=== PATIENT | female | born 1995 | race Caucasian/White ===

== ENCOUNTER 2022-01-14 01:37 | Emergency (ER) | payer MEDICAID, SELFPAY ==
[2022-01-14 01:41] VITALS: BP 133/93; PULSE 85; RESP 16; TEMP 36.7; O2SAT 97; BMI 32.4
--- NOTE | 2022-01-14 01:48 | EKG12_ITS ---
Test Reason : ASTHMA Blood Pressure : / mmHG Vent. Rate : 078 BPM Atrial Rate : 078 BPM P-R Int : 162 ms QRS Dur : 074 ms QT Int : 394 ms P-R-T Axes : 046 026 028 degrees QTc Int : 449 ms Normal sinus rhythm Septal infarct , age undetermined Abnormal ECG Confirmed by GURDEEP ALONSO, JOSELINE ([id number]), editor at large LALITA ALVARADO ([id number]) on 01/16/2022 11:45:03 AM Referred By: BB Confirmed By:LUCAS MACKENZIE MD
--- NOTE | 2022-01-14 01:49 | EDS_ITS ---
HPI History of Present Illness Chief Complaint: Asthma Informant: patient Onset/Context/Timing Onset: Days (1-2) Context: gradual and onset Timing: Continuous Quality: Positive for Wheezing and - (Chest tightness) Current Severity: Moderate Maximum Severity: Moderate Worsened by: - (Breathing and coughing make her chest pain worse) Associated Symptoms cough Chest Pain: Positive for Tightness (Substernal/diffuse, nonlateralizing without other radiation) Narrative Narrative: Patient comes in telling nurses that she just needs an albuterol inhaler because she does not have 1 and is having an asthma attack, tells me it has been gradual onset of chest tightness and wheezing with no obvious trigger, she has a minor nonproductive cough, and her main complaint is the chest pain. This is worse than she has had with typical asthma flareups in the past. She does not feel like she has a cold. She denies any fevers or chills or obvious exposures to COVID-positive patients in the recent past. No leg pain or swelling. No history of DVT or PE. No GI symptoms. [facility] Medical History Asthma Home Medications albuterol sulfate 90 mcg/actuation aerosol inhaler (Ventolin HFA) 2 puff inhalation Q4H PRN PRN Wheezing ##1 01/14/22 [Rx Last Taken Unknown] prednisone 20 mg tablet 40 mg PO DAILY #10 TABLETS 01/14/22 [Rx Last Taken Unknown] Allergy/AdvReac Type Severity Reaction Status Date / Time No Known Allergies Allergy Verified 01/14/22 01:39 Social History Smoking Status: Never smoker [facility] ED Constitutional Constitutional ED: Denies chills or fever(s) Eyes Eyes: Denies change in vision or diplopia ENT ENT ED: Denies rhinorrhea or sore throat Cardiovascular Cardiovascular: Reports chest pain; Denies leg edema or palpitations Respiratory/Chest Respiratory/Chest: Reports cough and dyspnea; Denies sputum Gastrointestinal Gastrointestinal: Denies abdominal pain, diarrhea, nausea or vomiting Genitourinary Genitourinary ED: Denies dysuria or hematuria Musculoskeletal Musculoskeletal: Denies back pain or neck pain Integumentary Denies abscess or rash Neurologic Neurologic: Denies headache(s), paresthesias or weakness Psychiatric Psychiatric: Denies anxiety or suicidal thoughts EXAM Physical Exam Const Vital Signs: 01/14/22 01:41 01/14/22 01:41 01/14/22 01:41 Temperature 98.1 F Temperature Source Oral Pulse Rate 85 Respiratory Rate 16 16 Respiratory Effort Normal Non-Labored Respiratory Depth Normal Respiratory Pattern Normal Blood Pressure 133/93 H Blood Pressure Mean 106 Pulse Ox 97 Oxygen Delivery Method Room Air Room Air 01/14/22 01:57 Temperature Temperature Source Pulse Rate 78 Respiratory Rate 24 H Respiratory Effort Respiratory Depth Respiratory Pattern Normal Blood Pressure Blood Pressure Mean Pulse Ox Oxygen Delivery Method Positive well nourished and well developed General Appearance ED: well developed and NAD HEENT Reports moist mucous membranes normocephalic and atraumatic Eyes PERRL and EOMs intact bilaterally Neck full ROM and supple Resp normal respiratory effort and clear to auscultation bilaterally Effort and Inspection: able to speak in complete sentences Cardio regular rate, regular rhythm and no murmurs Rate: Negative for tachycardic GI non-tender and non-distended Auscultation: normoactive bowel sounds Palpation: soft Back/Spine no CVA tenderness General Back: other FROM Extremity normal to inspection and no calf tenderness General Extremety ED: Negative for edema, pulses abnormal or tenderness General Extremity: Negative for edema or pulses abnormal Neuro oriented x3, CN's II-XII intact bilaterally and no sensory deficits noted Sensorium / Orientation: awake and alert Motor Exam: strength 5/5 throughout Psych mental status grossly normal Skin no rashes or lesions noted and no wounds MDM MDM MDM Narrative Medical decision making narrative: Patient was given a duo nebulizer treatment as well as an albuterol. On reevaluation she feels back to normal and all of her symptoms are resolved. She is asking for an albuterol MDI which was prescribed, she does not know what the trigger was for this, nor does she necessarily have a URI, so I gave her a prescription for a 5-day burst of prednisone to use as a [id number] prescription without starting her on it now. I discussed this with her, she and her significant other seemed understand how to use this although she continued to give me one-word answers on my reevaluation. Radiography Chest X-Ray - ED: 2 View, Read by ED Physician, Normal, Heart, Lungs, Mediastinum, Bony Structures and No Acute Disease Rhythm Strip Rhythm Strip: Sinus Rhythm Rate: 75 Ectopy: None EKG Initial EKG: Attestation: I personally reviewed and interpreted this EKG as follows: Interpretation: Sinus Rhythm and No Acute Injury Pattern Comments: Normal EKG Discharge Plan Triage Chief Complaint: Asthma ED Provider: Devan Arredondo Dx/Rx/DC Orders Clinical Impression: Acute asthma exacerbation, Chest tightness Instructions: Asthma Prescriptions: New prednisone 20 mg tablet 40 mg PO DAILY Qty: 10 0RF albuterol sulfate [Ventolin HFA] 90 mcg/actuation HFA aerosol inhaler 2 puff inhalation Q4H PRN PRN (Reason: Wheezing) Qty: 1 0RF Primary Care Provider: Care Physician,No Primary Referrals: Brandy Rhodes [NON-STAFF] - As Needed Care Physician,No Primary [Primary Care Provider] - Activity Restrictions/Additional Instructions: If you continue to need the rescue inhaler 3 or 4 times per day for the next day or 2, fill and take the prednisone as prescribed until completely gone. Disposition Disposition: Home, Self Care
--- NOTE | 2022-01-14 01:49 | RAD_ITS ---
INDICATION: cough, cp, sob, asthma EXAMINATION: Frontal and lateral views of the chest. COMPARISON: None. FINDINGS: Frontal and lateral views of the chest were obtained. The cardiac silhouette is not enlarged. No confluent airspace disease. No pleural effusion or pneumothorax. RAD/Chest PA and Lateral IMPRESSION: No acute pulmonary disease. Electronically Signed: Christiano Amin MD at 2:42 EDT ,
[2022-01-14] MEDS: Ipratropium/Albuterol Sulfate 3 ML AMPUL.NEB INHALATION (01:55)
[2022-01-14] MEDS: Albuterol 2.5 MG/3 ML VIAL.NEB. INHALATION (01:55)
[2022-01-14 01:57] VITALS: PULSE 78; RESP 24
[2022-01-14 02:52] VITALS: BP 132/70; PULSE 74; RESP 15; O2SAT 98
== END 2022-01-14 02:52 | disposition home or self-care (01) ==
PROVIDERS: Emergency Provider Emergency Medicine; Visit Provider Emergency Medicine
DX: J45.901 Unspecified asthma with (acute) exacerbation (principal); R07.89 Other chest pain
CPT/HCPCS: 94640; 71046; 93005; 99282

== ENCOUNTER 2022-05-04 12:05 | Emergency (ER) | payer MEDICAID, SELFPAY ==
[2022-05-04 12:06] VITALS: BP 133/84; PULSE 84; RESP 18; TEMP 36.2; O2SAT 97; BMI 33.7
--- NOTE | 2022-05-04 12:32 | EDS_ITS ---
HPI <CHETAN Ruggiero - Last Filed: 05/04/22 21:54> History of Present Illness Chief Complaint: Nausea/Vomiting Narrative Narrative: Patient presents with nausea, vomiting, and lower abdominal pain that started earlier this morning. Patient denies diarrhea, constipation, blood in the stool, dysuria, abnormal vaginal discharge, and history of prior abdominal surgeries. Patient states she has been able to tolerate food and fluids today. She is unsure if she could be . Patient's menstrual cycle ended yesterday and she states it lasted a duration of 14 days with some mild spotting towards the end which is unusual for her. PFSH <CHETAN Ruggiero - Last Filed: 05/04/22 21:54> [facility] Medical History Asthma Home Medications albuterol sulfate 90 mcg/actuation aerosol inhaler (Ventolin HFA) 2 puff inhalation Q4H PRN PRN Wheezing ##1 01/14/22 [Rx Last Taken Unknown] prednisone 20 mg tablet 40 mg PO DAILY #10 TABLETS 01/14/22 [Rx Last Taken Unknown] albuterol sulfate 90 mcg/actuation aerosol inhaler (Ventolin HFA) 1 - 2 puff inhalation Q4H PRN PRN Wheezing 1 month #1 vial 05/04/22 [Rx Last Taken Unknown] albuterol sulfate 90 mcg/actuation aerosol inhaler (Ventolin HFA) 2 puff inhalation Q4H PRN PRN Wheezing ##1 05/04/22 [Rx Last Taken Unknown] ondansetron 4 mg disintegrating tablet 4 mg PO Q8H PRN nausea and vomiting #10 tabs 05/04/22 [Rx Last Taken Unknown] ondansetron HCl 4 mg tablet 4 mg PO Q6H PRN nausea and vomiting #15 tabs 05/04/22 [Rx Last Taken Unknown] sulfamethoxazole 400 mg-trimethoprim 80 mg tablet (Bactrim) 1 tab PO BID cystitis 3 days #6 tabs 05/04/22 [Rx Last Taken Unknown] sulfamethoxazole 800 mg-trimethoprim 160 mg tablet 1 tab PO BID #6 TABLETS 05/04/22 [Rx Last Taken Unknown] Allergy/AdvReac Type Severity Reaction Status Date / Time No Known Allergies Allergy Verified 05/04/22 12:06 Social History Smoking Status: Never smoker ROS <CHETAN Ruggiero - Last Filed: 05/04/22 21:54> ROS ED Constitutional Constitutional ED: Denies chills, fever(s) or sweats ENT ENT ED: Denies rhinorrhea or sore throat Cardiovascular Cardiovascular: Denies chest pain Respiratory/Chest Respiratory/Chest: Denies cough or dyspnea Gastrointestinal Gastrointestinal: Reports abdominal pain, nausea and vomiting; Denies constipation, diarrhea, hematemesis or melena Genitourinary Genitourinary ED: Denies dysuria, hematuria or urinary frequency Musculoskeletal Musculoskeletal: Denies back pain or myalgias Integumentary Denies abscess, Abrasions or rash Neurologic Neurologic: Denies headache(s) or weakness Psychiatric Psychiatric: Denies anxiety EXAM <CHETAN Ruggiero - Last Filed: 05/04/22 21:54> Physical Exam Const Vital Signs: 05/04/22 12:06 Temperature 97.1 F L Temperature Source Temporal Pulse Rate 84 Respiratory Rate 18 Blood Pressure 133/84 H Blood Pressure Mean 100 Pulse Ox 97 Oxygen Delivery Method Room Air Positive obese Nutritional Appearance: obese HEENT Reports moist mucous membranes Eyes PERRL and EOMs intact bilaterally Neck supple Resp normal respiratory effort and clear to auscultation bilaterally Cardio regular rate, regular rhythm and no murmurs GI non-distended and no masses; Negative for hepatosplenomegaly GI Narrative: Patient is tender to palpation along the lower abdomen. Palpation: Negative for splenomegaly Back/Spine no CVA tenderness Extremity normal to inspection Neuro oriented x3, CN's II-XII intact bilaterally and no sensory deficits noted Sensorium / Orientation: alert Motor Exam: strength 5/5 throughout Psych mental status grossly normal Skin no rashes or lesions noted, no wounds and skin turgor normal <Gwyn Santo MD - Last Filed: 05/04/22 21:57> Physical Exam Const Vital Signs: 05/04/22 12:06 Temperature 97.1 F L Temperature Source Temporal Pulse Rate 84 Respiratory Rate 18 Blood Pressure 133/84 H Blood Pressure Mean 100 Pulse Ox 97 Oxygen Delivery Method Room Air MDM <CHETAN Ruggiero - Last Filed: 05/04/22 21:54> MDM MDM Narrative Medical decision making narrative: Patient has been given IV fluids and Zofran due to the N/V. After administration of this, patient felt much better and wanted to be discharged home. She is stable and I feel comfortable with her discharging home. UA showed acute cystitis. test was negative. She has been prescribed antibiotics and Zofran. She asked me if I could refill her albuterol inhaler due to currently being out and not being able to see her PCP until August. I have also referred her to [facility]URSE [facility] Dr. Strickland for the abnormal vaginal bleeding that occurred. Discharge instructions reviewed with patient and she is agreeable with plan. Lab Data Attestation: I reviewed the patient's lab results. Lab results narrative: Acute cystitis. Elevated white blood cell count. Labs: Laboratory Results - last 24 hr 05/04/22 05/04/22 05/04/22 12:50 12:50 12:50 WBC 13.8 H RBC 4.51 Hgb 12.8 Hct 39.5 MCV 87.6 MCH 28.4 MCHC 32.4 RDW Std Deviation 42.1 RDW Coeff of Karly 13.2 Plt Count 325 MPV 10.3 Immature Gran % (Auto) 0.400 Neut % (Auto) 77.5 H Lymph % (Auto) 18.5 L Chaves % (Auto) 3.3 Eos % (Auto) 0.1 Baso % (Auto) 0.2 Absolute Neuts (auto) 10.7 H Absolute Lymphs (auto) 2.55 Nucleated RBC % 0 Sodium 141 Potassium 3.7 Chloride 108 H Carbon Dioxide 27.0 Anion Gap 6 BUN 14 Creatinine 0.84 Estim Creat Clear Calc 93.34 Est GFR (MDRD) Af Amer 103 Est GFR (MDRD) Non-Af 85 BUN/Creatinine Ratio 16.6 Glucose 120 H Calcium 9.5 Total Bilirubin 0.40 AST 14 L ALT 21 Alkaline Phosphatase 125 H Total Protein 8.0 Albumin 3.8 Globulin 4.2 Albumin/Globulin Ratio 0.9 Lipase 101 Serum , Qual NEGATIVE Urine Color Urine Clarity Urine pH Ur Specific [place] Urine Protein Urine Glucose (UA) Urine Ketones Urine Occult Blood Urine Nitrite Urine Bilirubin Urine Urobilinogen Ur Leukocyte Esterase Urine RBC Urine WBC Ur Squamous Epith Cells Urine Bacteria Urine Mucus 05/04/22 12:50 WBC RBC Hgb Hct MCV MCH MCHC RDW Std Deviation RDW Coeff of Karly Plt Count MPV Immature Gran % (Auto) Neut % (Auto) Lymph % (Auto) Chaves % (Auto) Eos % (Auto) Baso % (Auto) Absolute Neuts (auto) Absolute Lymphs (auto) Nucleated RBC % Sodium Potassium Chloride Carbon Dioxide Anion Gap BUN Creatinine Estim Creat Clear Calc Est GFR (MDRD) Af Amer Est GFR (MDRD) Non-Af BUN/Creatinine Ratio Glucose Calcium Total Bilirubin AST ALT Alkaline Phosphatase Total Protein Albumin Globulin Albumin/Globulin Ratio Lipase Serum , Qual Urine Color Yellow Urine Clarity Cloudy Urine pH 5.0 Ur Specific [place] 1.020 Urine Protein 30 H Urine Glucose (UA) Normal Urine Ketones 5 H Urine Occult Blood 10 H Urine Nitrite Negative Urine Bilirubin Negative Urine Urobilinogen Normal Ur Leukocyte Esterase 500 H Urine RBC 0 SEEN Urine WBC 25-50 SEEN Ur Squamous Epith Cells 0-5 SEEN Urine Bacteria 1+ Urine Mucus 0 SEEN CBC shows elevated white blood cell count and neutrophil count. CMP shows elevated alkaline phosphate. <Gwyn Santo MD - Last Filed: 05/04/22 21:57> [facility] MDM Narrative Medical decision making narrative: Patient has been given IV fluids and Zofran due to the N/V. After administration of this, patient felt much better and wanted to be discharged home. She is stable and I feel comfortable with her discharging home. UA showed acute cystitis. test was negative. She has been prescribed antibiotics and Zofran. She asked me if I could refill her albuterol inhaler due to currently being out and not being able to see her PCP until August. I have also referred her to [facility]URSE [employer] Dr. Strickland for the abnormal vaginal bleeding that occurred. Discharge instructions reviewed with patient and she is agreeable with plan. I have personally performed a face to face assessment of the patient and have reviewed the JAX Note. I performed a substantive portion of the visit including all aspects of the following. My guillen findings include: History is nausea and vomiting. Abdominal pain. Exam is afebrile. Vital signs noted. Nontoxic-appearing. Abdomen soft and nontender with normoactive bowel sounds. Medical Decision Making check labs. Check UA. IV fluids. Discharge. Other additions or changes: [None] Lab Data Labs: Laboratory Results - last 24 hr 05/04/22 05/04/22 05/04/22 12:50 12:50 12:50 WBC 13.8 H RBC 4.51 Hgb 12.8 Hct 39.5 MCV 87.6 MCH 28.4 MCHC 32.4 RDW Std Deviation 42.1 RDW Coeff of Karly 13.2 Plt Count 325 MPV 10.3 Immature Gran % (Auto) 0.400 Neut % (Auto) 77.5 H Lymph % (Auto) 18.5 L [place]aves % (Auto) 3.3 Eos % (Auto) 0.1 Baso % (Auto) 0.2 Absolute Neuts (auto) 10.7 H Absolute Lymphs (auto) 2.55 Nucleated RBC % 0 Sodium 141 Potassium 3.7 Chloride 108 H Carbon Dioxide 27.0 Anion Gap 6 BUN 14 Creatinine 0.84 Estim Creat Clear Calc 93.34 Est GFR (MDRD) Af Amer 103 Est GFR (MDRD) Non-Af 85 BUN/Creatinine Ratio 16.6 Glucose 120 H Calcium 9.5 Total Bilirubin 0.40 AST 14 L ALT 21 Alkaline Phosphatase 125 H Total Protein 8.0 Albumin 3.8 Globulin 4.2 Albumin/Globulin Ratio 0.9 Lipase 101 Serum , Qual NEGATIVE Urine Color Urine Clarity Urine pH Ur Specific [place] Urine Protein Urine Glucose (UA) Urine Ketones Urine Occult Blood Urine Nitrite Urine Bilirubin Urine Urobilinogen Ur Leukocyte Esterase Urine RBC Urine WBC Ur Squamous Epith Cells Urine Bacteria Urine Mucus 05/04/22 12:50 WBC RBC Hgb Hct MCV MCH MCHC RDW Std Deviation RDW Coeff of Karly Plt Count MPV Immature Gran % (Auto) Neut % (Auto) Lymph % (Auto) Chaves % (Auto) Eos % (Auto) Baso % (Auto) Absolute Neuts (auto) Absolute Lymphs (auto) Nucleated RBC % Sodium Potassium Chloride Carbon Dioxide Anion Gap BUN Creatinine Estim Creat Clear Calc Est GFR (MDRD) Af Amer Est GFR (MDRD) Non-Af BUN/Creatinine Ratio Glucose Calcium Total Bilirubin AST ALT Alkaline Phosphatase Total Protein Albumin Globulin Albumin/Globulin Ratio Lipase Serum , Qual Urine Color Yellow Urine Clarity Cloudy Urine pH 5.0 Ur Specific [place] 1.020 Urine Protein 30 H Urine Glucose (UA) Normal Urine Ketones 5 H Urine Occult Blood 10 H Urine Nitrite Negative Urine Bilirubin Negative Urine Urobilinogen Normal Ur Leukocyte Esterase 500 H Urine RBC 0 SEEN Urine WBC 25-50 SEEN Ur Squamous Epith Cells 0-5 SEEN Urine Bacteria 1+ Urine Mucus 0 SEEN Discharge Plan Triage Chief Complaint: Nausea/Vomiting ED Midlevel Provider: Bianca Hernandez ED Provider: Gwyn Santo Dx/Rx/DC Orders Clinical Impression: Nausea & vomiting, Cystitis, Abdominal pain, Medication refill, Abnormal vaginal bleeding Instructions: ED Cystitis Female Adult Prescriptions: New sulfamethoxazole-trimethoprim [Bactrim] 400-80 mg tablet 1 tab PO BID 3 Days Qty: 6 0RF ondansetron 4 mg tablet,disintegrating 4 mg PO Q8H PRN (Reason: nausea and vomiting) Qty: 10 0RF albuterol sulfate [Ventolin HFA] 90 mcg/actuation HFA aerosol inhaler 1 - 2 puff inhalation Q4H PRN PRN (Reason: Wheezing) 30 Days Qty: 1 0RF ondansetron HCl 4 mg tablet 4 mg PO Q6H PRN (Reason: nausea and vomiting) Qty: 15 0RF sulfamethoxazole-trimethoprim [sulfamethoxazole-trimethoprim] 800-160 mg tablet 1 tab PO BID Qty: 6 0RF albuterol sulfate [Ventolin HFA] 90 mcg/actuation HFA aerosol inhaler 2 puff inhalation Q4H PRN PRN (Reason: Wheezing) Qty: 1 0RF Rx Instructions: use spacer No Action prednisone 20 mg tablet 40 mg PO DAILY Qty: 10 0RF albuterol sulfate [Ventolin HFA] 90 mcg/actuation HFA aerosol inhaler 2 puff inhalation Q4H PRN PRN (Reason: Wheezing) Qty: 1 0RF Primary Care Provider: Care Physician,No Primary Referrals: Rylee Nobles MD [Med Staff - Transportation Design Engineer] - 1 Week if not improving Mala Strickland DO [Med Staff - Active Staff] - 1 Week (14 days of abnormal vaginal bleeding during menstrual cycle.) Care Physician,No Primary [Primary Care Provider] - Activity Restrictions/Additional Instructions: Follow-up with ultrasonographer for the abnormal vaginal bleeding. Seek medical attention if new or worsening symptoms. Stay well hydrated. Disposition Disposition: Home, Self Care Discharge Date/Time: 05/04/22 14:01
[2022-05-04] MEDS: Ondansetron 4 MG/2 ML Vial IV (12:49)
[2022-05-04] MEDS: 0.9% Normal Saline 1,000 ML 999 ML IV (12:49)
[2022-05-04 12:56] LABS: Mucous, Urine 0 SEEN /hpf (<or=2+); Red Blood Cells-Urine 0 SEEN /hpf (0-5)
[2022-05-04 13:01] LABS: Absolute Lymphocyte Count 2.55 X10^3/uL (0.83-4.51); Absolute Neutrophil Count 10.7 X10^3/uL (2.0-7.7); Basophil# 0.03 X10^3/uL; Basophil% 0.2 % (0-1); Eosinophil# 0.01 X10^3/uL; Eosinophils% 0.1 % (0-5); Hematocrit 39.5 % (37-47); Hemoglobin 12.8 g/dL (12.0-15.0); Lymphocyte # 2.55 X10^3/ul (0.83-4.51); Lymphocyte % 18.5 % (19-41); Mean Corp Hgb Conc 32.4 g/dL (32-36); Mean Corpuscular Hgb 28.4 pg (27.0-32.0); Mean Corpuscular Volume 87.6 fL (81-99); Mean Platelet Vol. 10.3 fl (6.2-12.0); Monocyte# 0.46 X10^3/uL; Monocyte% 3.3 % (0-10); NRBC Flagged by Analyzer 0 % (0-5); Neutrophil # 10.66 X10^3/uL (2.7-7.7); Neutrophil % 77.5 % (47-70); Platelet Count 325 K/mm3 (150-450); RBC Distribution Width CV 13.2 % (11.6-14.6); RBC Distribution Width SD 42.1 fl (35.1-43.9); Red Blood Count 4.51 M/mm3 (4.2-5.4); White Blood Count 13.8 K/mm3 (4.4-11.0)
[2022-05-04 13:02] LABS: Color, Urine Yellow (Yellow); Glucose, Dipstick Normal (Normal); Ketone-Dipstick 5 mg/dl (Negative); Leukocyte Esterase-Dipstick 500 /ul (Negative); Nitrite-Dipstick Negative (Negative); Occult Blood-Urine 10 /ul (Negative); Protein-Dipstick 30 mg/dl (Negative); Urine Bilirubin Dipstick Negative (Negative); Urine Clarity Cloudy (Clear); Urine Urobilinogen Normal (Normal)
[2022-05-04 13:21] LABS: Bacteria 1+ /hpf (None Seen); Squamous Epithelial Cells - UA 0-5 SEEN /hpf (5-10); White Blood Cells 25-50 SEEN /hpf (0-5)
[2022-05-04 13:26] LABS: Internal QC Validated? YES +Cl - CLEAR BKGD; Pregnancy, Serum, hCG Quali. NEGATIVE Negative
[2022-05-04 13:28] LABS: ALB/GLOB Ratio 0.9 RATIO (0.9-2.4); AST(SGOT) 14 U/L (15-37); Alanine Aminotransfer ALT/SGPT 21 U/L (13-56); Albumin, Serum 3.8 g/dL (3.2-5.0); Alkaline Phosphatase 125 U/L (45-117); Anion Gap 6 (5-15); BUN 14 mg/dL (7-18); BUN/Creat Ratio 16.6 RATIO (10-20); Calcium,Total 9.5 mg/dL (8.5-10.1); Chloride 108 mmol/L (98-107); Creatinine, Serum 0.84 mg/dL (0.55-1.02); EST Glomerular Filtration Rate 85 mL/min (>60); Est Glom Filt Rate - Afr Amer 103 mL/min (>60); Estimated Creatinine Clearance 93.34 ml/min; Globulin 4.2 g/dL (2.2-4.2); Glucose 120 mg/dL (74-106); Lipase 101 U/L (73-393); Potassium 3.7 mmol/L (3.5-5.1); Sodium Level 141 mmol/L (136-145)
== END 2022-05-04 14:01 | disposition home or self-care (01) ==
PROVIDERS: Physician Assistant; Emergency Provider Emergency Medicine; Visit Provider Emergency Medicine
DX: R11.2 Nausea with vomiting, unspecified (principal); N30.90 Cystitis, unspecified without hematuria; Z76.0 Encounter for issue of repeat prescription; N93.9 Abnormal uterine and vaginal bleeding, unspecified; J45.909 Unspecified asthma, uncomplicated
CPT/HCPCS: 80053; 81001; 83690; 84703; 85025; 96361; 96374; 99283; J7030; J2405

== ENCOUNTER 2022-10-08 16:52 | Emergency (ER) | payer MEDICAID, SELFPAY ==
[2022-10-08 16:53] VITALS: BP 129/92; PULSE 94; RESP 14; TEMP 36.1; O2SAT 96; BMI 25.8
--- NOTE | 2022-10-08 17:11 | CT_ITS ---
STUDY: CT ABDOMEN AND PELVIS WITHOUT CONTRAST REASON FOR EXAM: Female, 27 years old. pain, blunt trauma RADIATION DOSAGE (If Supplied By Facility): CTDIvol = ( 15.69 ) mGy, DLP = ( 838.75 ) mGycm TECHNIQUE: Transaxial images were obtained from the dome of the diaphragm to the symphysis pubis without oral contrast, and without intravenous contrast. Sagittal and coronal images were reconstructed. Individualized dose optimization techniques were used for this CT. COMPARISON: None. FINDINGS: The visualized lung bases are unremarkable. The visualized portions of the heart are within normal limits. Normal liver. Normal gallbladder and extrahepatic biliary system. Normal spleen. Normal pancreas. Normal bilateral adrenal glands. Normal right kidney. Normal left kidney. Normal visualized stomach. Normal small intestine. Normal colon. The appendix is visualized and appears normal. Normal abdominal aorta. Normal inferior vena cava. Normal retroperitoneum. Normal urinary bladder. Normal abdominal wall. Normal osseous structures. CT/Abdomen/Pelvis without Cont IMPRESSION: Normal unenhanced CT of the abdomen and pelvis. Electronically Signed: Jose R Yang MD at 18:43 EDT ,
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
[2022-10-08 17:53] LABS: Internal QC Validated? YES +Cl - CLEAR BKGD; Pregnancy, Urine Negative Negative
== END 2022-10-08 18:54 | disposition home or self-care (01) ==
PROVIDERS: Emergency Provider Emergency Medicine; PCP Internal Medicine; Visit Provider Emergency Medicine
DX: S80.02XA Contusion of left knee, initial encounter (principal); R10.819 Abdominal tenderness, unspecified site; V43.52XA Car driver injured in collision with other type car in traffic accident, initial encounter; S50.01XA Contusion of right elbow, initial encounter; J45.909 Unspecified asthma, uncomplicated
CPT/HCPCS: 73090; 73564; 74176; 81025; 99282

== ENCOUNTER 2022-10-10 07:10 | Emergency (ER) | payer MEDICAID, SELFPAY ==
[2022-10-10 07:11] VITALS: BP 126/87; PULSE 58; RESP 18; TEMP 36.8; O2SAT 97; BMI 34.7
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
[2022-10-10] MEDS: Morphine 4 MG/ML Syringe IV (07:40)
[2022-10-10] MEDS: Ondansetron 4 MG/2 ML Vial IV (07:40)
[2022-10-10 07:49] LABS: Absolute Lymphocyte Count 3.99 X10^3/uL (0.83-4.51); Absolute Neutrophil Count 7.2 X10^3/uL (2.0-7.7); Basophil# 0.05 X10^3/uL; Basophil% 0.4 % (0-1); Eosinophil# 0.22 X10^3/uL; Eosinophils% 1.8 % (0-5); Hematocrit 39.8 % (37-47); Hemoglobin 12.4 g/dL (12.0-15.0); Lymphocyte # 3.99 X10^3/ul (0.83-4.51); Lymphocyte % 32.9 % (19-41); Mean Corp Hgb Conc 31.2 g/dL (32-36); Mean Corpuscular Volume 86.7 fL (81-99); Mean Platelet Vol. 9.8 fl (6.2-12.0); Monocyte# 0.62 X10^3/uL; Monocyte% 5.1 % (0-10); NRBC Flagged by Analyzer 0 % (0-5); Neutrophil % 59.4 % (47-70); Platelet Count 334 K/mm3 (150-450); RBC Distribution Width CV 14.3 % (11.6-14.6); RBC Distribution Width SD 45.1 fl (35.1-43.9); Red Blood Count 4.59 M/mm3 (4.2-5.4); White Blood Count 12.1 K/mm3 (4.4-11.0)
[2022-10-10 08:06] LABS: ALB/GLOB Ratio 0.9 RATIO (0.9-2.4); AST(SGOT) 15 U/L (15-37); Alanine Aminotransfer ALT/SGPT 27 U/L (13-56); Albumin, Serum 3.6 g/dL (3.2-5.0); Alkaline Phosphatase 116 U/L (45-117); Anion Gap 6 (5-15); BUN 16 mg/dL (7-18); BUN/Creat Ratio 18.3 RATIO (10-20); Calcium,Total 9.5 mg/dL (8.5-10.1); Chloride 107 mmol/L (98-107); Creatinine, Serum 0.87 mg/dL (0.55-1.02); EST Glomerular Filtration Rate 82 mL/min (>60); Est Glom Filt Rate - Afr Amer 99 mL/min (>60); Estimated Creatinine Clearance 90.12 ml/min; Globulin 3.9 g/dL (2.2-4.2); Glucose 93 mg/dL (74-106); Potassium 3.8 mmol/L (3.5-5.1); Protein, Total 7.5 g/dL (6.4-8.2); Sodium Level 139 mmol/L (136-145)
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
[2022-10-10 09:11] VITALS: RESP 18
== END 2022-10-10 09:11 | disposition home or self-care (01) ==
PROVIDERS: Emergency Provider Emergency Medicine; PCP Internal Medicine; Visit Provider Emergency Medicine
DX: S39.012A Strain of muscle, fascia and tendon of lower back, initial encounter (principal); V43.52XA Car driver injured in collision with other type car in traffic accident, initial encounter; S29.011A Strain of muscle and tendon of front wall of thorax, initial encounter; S30.1XXA Contusion of abdominal wall, initial encounter; R11.2 Nausea with vomiting, unspecified; S16.1XXA Strain of muscle, fascia and tendon at neck level, initial encounter; J45.909 Unspecified asthma, uncomplicated
CPT/HCPCS: 70450; 71045; 71260; 72040; 74177; 80053; 85025; 96374; 96375; 99283; J7030; Q9967; A4216; J2405

== ENCOUNTER 2022-12-14 16:16 | Emergency (ER) | payer MEDICAID, SELFPAY ==
[2022-12-14 16:17] VITALS: BP 152/99; PULSE 110; RESP 18; TEMP 36.2; O2SAT 99; BMI 33.8
--- NOTE | 2022-12-14 16:42 | ED.VIS.GI ---
HPI HPI - GI History of Present Illness Chief Complaint: Abd Pain Informant: patient Abdominal Pain/Flank Pain Onset: Weeks (1-2) Context: Gradual Onset Timing: Continuous Quality: Stabbing Location: Diffuse Worsened by: Food Relieved by: Nothing Nausea/Vomiting/Emesis GI Symptom: Positive for Nausea and Vomiting Onset: Today Quality: Positive for Nonbilious; Negative for Blood streaks, Coffee ground or Hematemesis Episodes: 2 Diarrhea/Melena/Hematochezia GI Symptom: Negative for Diarrhea, Melena or Hematochezia Associated Symptoms Associated Symptoms: Negative for Dysuria, Frequency or Hematuria LMP: 11/26/2022 Narrative Narrative: Presents with abdominal pain that has been waxing and waning over the past 1 to 2 weeks. Patient states it came on gradually. Patient describes her pain as stabbing. Patient states her pain is diffuse across her abdomen. Patient states it became worse after eating today. Patient admits to 2 episodes of nausea and vomiting today. Patient denies any hematemesis or coffee-ground emesis. Patient denies any melena or hematochezia. Patient denies any diarrhea. Patient denies any urinary complaints. Patient saw her primary care physician yesterday who did a CBC, CMP, urinalysis, and urine hCG. CBC showed a leukocytosis of 13.6. The remainder of the labs were within normal limits. [facility] Medical History Asthma Impacted cerumen, right ear Home Medications albuterol sulfate 90 mcg/actuation aerosol inhaler (Ventolin HFA) 1 - 2 puff inhalation Q4H PRN PRN Wheezing 1 month #1 vial 05/04/22 [Rx Last Taken Unknown] buspirone 10 mg tablet mg 10/10/22 [History Last Taken Unknown] cyclobenzaprine 10 mg tablet 10 mg PO TID PRN Muscle Spasm #20 TABLETS 10/10/22 [Rx Last Taken Unknown] hydrocodone-acetaminophen 5-325mg 5mg-325mg 1 tab PO Q4H PRN PRN Pain 2 days #10 TABLETS 10/10/22 [Rx Last Taken Unknown] hydroxyzine HCl 50 mg tablet mg 10/10/22 [History Last Taken Unknown] levonorgestrel-ethinyl estradiol 0.1 mg-20 mcg tablet (Aviane) tab 10/10/22 [History Last Taken Unknown] naproxen 500 mg tablet (Naprosyn) 500 mg PO BID PRN pain #20 tabs 10/10/22 [Rx Last Taken Unknown] Allergy/AdvReac Type Severity Reaction Status Date / Time No Known Allergies Allergy Verified 12/14/22 16:17 Surgical History no surgical history no surgical history Social History Smoking Status: Never smoker ROS ROS ED Constitutional Constitutional ED: Denies chills or fever(s) Eyes Eyes: Denies blurry vision or change in vision ENT ENT ED: Denies rhinorrhea or sore throat Cardiovascular Cardiovascular: Denies chest pain or palpitations Respiratory/Chest Respiratory/Chest: Denies cough or dyspnea Gastrointestinal Gastrointestinal: Reports abdominal pain, nausea and vomiting; Denies diarrhea or melena Genitourinary Genitourinary ED: Denies dysuria or hematuria Musculoskeletal Musculoskeletal: Reports back pain; Denies neck pain Integumentary Denies abscess or rash Neurologic Neurologic: Denies headache(s) or weakness Allergic/Immunologic Allergic/Immunologic ED: Denies mouth swelling or urticaria EXAM Physical Exam Const Vital Signs: 12/14/22 16:17 12/14/22 17:15 Temperature 97.2 F L Temperature Source Temporal Pulse Rate 110 H 93 Respiratory Rate 18 16 Blood Pressure 152/99 H 123/90 H Blood Pressure Mean 116 101 Pulse Ox 99 98 Oxygen Delivery Method Room Air Positive well nourished, well developed and obese General Appearance ED: well developed and NAD Nutritional Appearance: obese HEENT Reports moist mucous membranes Neck supple and no JVD Resp normal respiratory effort and clear to auscultation bilaterally Cardio regular rate, regular rhythm and no murmurs GI normal to inspection, nondistended, normoactive bowel sounds Palpation: soft and tender epigastric, LLQ, RLQ, LUQ, RUQ, periumbilical and suprapubic; Negative for guarding or rebound tenderness present Extremity normal to inspection General Extremety ED: Negative for edema or tenderness General Extremity: Negative for edema Neuro oriented x3, CN's II-XII intact bilaterally and no sensory deficits noted Sensorium / Orientation: alert Motor Exam: strength 5/5 throughout Psych mental status grossly normal Skin no rashes or lesions noted MDM MDM MDM Narrative Medical decision making narrative: Differential diagnosis includes cholecystitis, cholelithiasis, pancreatitis, gastroenteritis, gastritis, peptic ulcer disease, bowel obstruction, and bowel perforation. CBC will be obtained to assess for leukocytosis and anemia. Comprehensive metabolic profile will be obtained to assess for hepatic function, renal function, and electrolyte abnormality. Lipase will be obtained to assess for pancreatitis. CT scan of the abdomen pelvis will be obtained to assess for bowel obstruction, perforation, cholecystitis, and pancreatitis. History & Record Review Additional record(s) reviewed:: Prior labs Lab Data Attestation: I reviewed the patient's lab results. Lab results narrative: CBC was reviewed. There is a mild leukocytosis of 13.7. This is unchanged compared to previous results. Comprehensive metabolic profile was reviewed. Glucose was slightly elevated at 140 and alkaline phosphatase was slightly elevated at 131. The remainder was essentially within normal limits. Labs: Laboratory Results - last 24 hr 12/14/22 17:25 WBC 13.7 H RBC 4.42 Hgb 12.3 Hct 36.8 L MCV 83.3 MCH 27.8 MCHC 33.4 RDW Std Deviation 42.1 RDW Coeff of Karly 13.8 Plt Count 327 MPV 9.9 Immature Gran % (Auto) 0.600 Neut % (Auto) 76.0 H Lymph % (Auto) 19.5 [place] % (Auto) 3.2 Eos % (Auto) 0.4 Baso % (Auto) 0.3 Absolute Neuts (auto) 10.4 H Absolute Lymphs (auto) 2.67 Nucleated RBC % 0 Sodium 137 Potassium 3.6 Chloride 105 Carbon Dioxide 24.0 Anion Gap 8 BUN 13 Creatinine 0.88 Estim Creat Clear Calc 89.10 Est GFR (MDRD) Af Amer 98 Est GFR (MDRD) Non-Af 81 BUN/Creatinine Ratio 14.8 Glucose 140 H Calcium 9.0 Total Bilirubin 0.30 AST 11 L ALT 19 Alkaline Phosphatase 131 H Total Protein 7.7 Albumin 3.4 Globulin 4.3 H Albumin/Globulin Ratio 0.8 L Radiography Diagnostic Testing: Clinical Impression(s) from Imaging Studies Abdomen/Pelvis CT 12/14/22 16:50 IMPRESSION: No evidence for small bowel obstruction or other acute abnormality.. Incidental finding of small right ovarian cyst of uncertain clinical significance Electronically Signed: iSlvio Francois MD at 18:50 EDT , CT scan of the abdomen pelvis was obtained. There is no small bowel obstruction or perforation. There is no free air or free fluid noted. There is a small right ovarian cyst. This was interpreted by the radiologist and was also independently reviewed by myself. Treatment and Re-Evaluation :: Patient was given IV fluids, morphine, and Zofran. Patient was feeling better on reevaluation. Patient was advised of her findings. Patient was instructed to start with a bland diet and advance as tolerated. Patient was instructed to follow-up with her primary care physician in 5 to 7 days for further evaluation. Patient understood and was agreeable with the plan. All questions were answered. Discharge Plan Triage Chief Complaint: Abd Pain ED Provider: David Anderson Dx/Rx/DC Orders Clinical Impression: Leukocytosis, Abdominal pain Instructions: ED Abdominal Pain Unkn Cause Fem Prescriptions: No Action albuterol sulfate [Ventolin HFA] 90 mcg/actuation HFA aerosol inhaler 1 - 2 puff inhalation Q4H PRN PRN (Reason: Wheezing) 30 Days Qty: 1 0RF levonorgestrel-ethinyl estrad [Aviane] 0.1-20 mg-mcg tablet Patient Comments: TAKE 1 TABLET BY MOUTH ONCE DAILY FOR 28 DAYS hydroxyzine HCl 50 mg tablet Patient Comments: TAKE 1 TABLET BY MOUTH THREE TIMES DAILY NEEDED FOR ANXIETY buspirone 10 mg tablet Patient Comments: TAKE 1/2 TO 1 (ONE-HALF TO ONE) TABLET BY MOUTH THREE TIMES DAILY NEEDED cyclobenzaprine [cyclobenzaprine] 10 mg tablet 10 mg PO TID PRN (Reason: Muscle Spasm) Qty: 20 0RF hydrocodone-acetaminophen [hydrocodone-acetaminophen] 5-325 mg tablet 1 tab PO Q4H PRN PRN (Reason: Pain) 2 Days Qty: 10 0RF naproxen [Naprosyn] 500 mg tablet 500 mg PO BID PRN (Reason: pain) Qty: 20 0RF Primary Care Provider: Skyla Griffin NP Referrals: Skyla Griffin NP, [employer] [Primary Care Provider] - 5-7 Days Disposition Disposition: Home, Self Care
--- NOTE | 2022-12-14 16:50 | CT_ITS ---
STUDY: CT ABDOMEN AND PELVIS WITH CONTRAST REASON FOR EXAM: Female, 27 years old. Abdominal pain -- IV PO Contrast RADIATION DOSAGE (If Supplied By Facility): CTDIvol = ( 18.55 ) mGy, DLP = ( 1252.32 ) mGycm TECHNIQUE: Transaxial images were obtained from the dome of the diaphragm to the symphysis pubis without oral contrast. Oral and amp; IV Gastrografin and amp; 100mL Isovue-300 was administered. Sagittal and coronal images were reconstructed. Individualized dose optimization techniques were used for this CT. COMPARISON: October 08, 2022 FINDINGS: Minor atelectasis within the dependent portion of the lungs.. The visualized portions of the heart are within normal limits. Mild nonspecific fatty infiltrated liver without mass or bile duct dilatation. Normal gallbladder and extrahepatic biliary system. Normal spleen. Normal pancreas. Normal bilateral adrenal glands. Normal right kidney. Normal left kidney. Normal visualized stomach. Normal small intestine. Normal colon. The appendix is visualized and appears normal. Tiny pericecal nodes without stranding in the fat likely benign Normal abdominal aorta. Normal inferior vena cava. Normal retroperitoneum. Normal urinary bladder. Small right ovarian cyst measuring approximately 2.7 x 2.3 cm Tiny fat-containing periumbilical hernia Normal osseous structures. CT/Abdomen/Pelvis WITH Contrast IMPRESSION: No evidence for small bowel obstruction or other acute abnormality.. Incidental finding of small right ovarian cyst of uncertain clinical significance Electronically Signed: Silvio Francois MD at 18:50 EDT ,
[2022-12-14 17:15] VITALS: BP 123/90; PULSE 93; RESP 16; O2SAT 98
[2022-12-14] MEDS: Morphine 4 MG/ML Syringe IV (17:16)
[2022-12-14] MEDS: Ondansetron 4 MG/2 ML Vial IV (17:16)
[2022-12-14] MEDS: 0.9% Normal Saline 1,000 ML 1000 ML IV (17:16)
[2022-12-14 17:36] LABS: Absolute Lymphocyte Count 2.67 X10^3/uL (0.83-4.51); Absolute Neutrophil Count 10.4 X10^3/uL (2.0-7.7); Basophil# 0.04 X10^3/uL; Basophil% 0.3 % (0-1); Eosinophil# 0.05 X10^3/uL; Eosinophils% 0.4 % (0-5); Hematocrit 36.8 % (37-47); Hemoglobin 12.3 g/dL (12.0-15.0); Lymphocyte # 2.67 X10^3/ul (0.83-4.51); Lymphocyte % 19.5 % (19-41); Mean Corp Hgb Conc 33.4 g/dL (32-36); Mean Corpuscular Hgb 27.8 pg (27.0-32.0); Mean Corpuscular Volume 83.3 fL (81-99); Mean Platelet Vol. 9.9 fl (6.2-12.0); Monocyte# 0.44 X10^3/uL; Monocyte% 3.2 % (0-10); NRBC Flagged by Analyzer 0 % (0-5); Neutrophil # 10.43 X10^3/uL (2.7-7.7); Platelet Count 327 K/mm3 (150-450); RBC Distribution Width CV 13.8 % (11.6-14.6); RBC Distribution Width SD 42.1 fl (35.1-43.9); Red Blood Count 4.42 M/mm3 (4.2-5.4); White Blood Count 13.7 K/mm3 (4.4-11.0)
[2022-12-14 18:00] LABS: ALB/GLOB Ratio 0.8 RATIO (0.9-2.4); AST(SGOT) 11 U/L (15-37); Alanine Aminotransfer ALT/SGPT 19 U/L (13-56); Albumin, Serum 3.4 g/dL (3.2-5.0); Alkaline Phosphatase 131 U/L (45-117); Anion Gap 8 (5-15); BUN 13 mg/dL (7-18); BUN/Creat Ratio 14.8 RATIO (10-20); Chloride 105 mmol/L (98-107); Creatinine, Serum 0.88 mg/dL (0.55-1.02); EST Glomerular Filtration Rate 81 mL/min (>60); Est Glom Filt Rate - Afr Amer 98 mL/min (>60); Globulin 4.3 g/dL (2.2-4.2); Glucose 140 mg/dL (74-106); Potassium 3.6 mmol/L (3.5-5.1); Protein, Total 7.7 g/dL (6.4-8.2); Sodium Level 137 mmol/L (136-145)
[2022-12-14 19:09] VITALS: BP 116/79; PULSE 72; RESP 16; O2SAT 97
== END 2022-12-14 19:26 | disposition home or self-care (01) ==
PROVIDERS: Emergency Provider Emergency Medicine; PCP Internal Medicine; Visit Provider Emergency Medicine
DX: R10.9 Unspecified abdominal pain (principal); R11.2 Nausea with vomiting, unspecified; D72.829 Elevated white blood cell count, unspecified; J45.909 Unspecified asthma, uncomplicated; Z79.899 Other long term (current) drug therapy; Z79.3 Long term (current) use of hormonal contraceptives
CPT/HCPCS: 74177; 80053; 85025; 96361; 96374; 96375; 99284; J7030; Q9967; A4216; J2405

== ENCOUNTER → 2023-11-22 | Outpatient (CLI) | payer MEDICAID, SELFPAY ==
--- NOTE | 2023-11-22 10:01 | US_ITS ---
STUDY: ABDOMINAL ULTRASOUND - RIGHT UPPER QUADRANT; ELASTOGRAPHY REASON FOR VISIT: Female, 28 years old. Fatty infiltration of the liver. TECHNIQUE: Ultrasound evaluation of the right upper quadrant was performed with real-time and static deras-scale imaging. Point quantification shear wave elastography was performed (SwipeToSpin). TECHNICAL QUALITY: Adequate. COMPARISON: None. FINDINGS: Liver: The liver is enlarged and measures 18.2 cm. There is normal echogenicity of the liver. The bile ducts are within normal limits. There is hepatic color flow. The direction of portal flow is hepatopetal. There is no demonstrated mass lesion. Median liver stiffness measured 10.6 kPa. Gallbladder: Normal distended gallbladder. The gallbladder wall measures 1 mm. There is a negative sonographic Davies''s sign. There is no pericholecystic fluid. There are no gallstones. Common Bile Duct (C.B.D.): The common bile duct measures 3 mm. Pancreas: There is normal echogenicity of the visualized pancreas. There is no demonstrated pancreatic mass or cyst. Right Kidney: Normal size of the right kidney. The right kidney measures 10.4 cm x 6.4 cm x 6 cm. Normal renal cortex. The right cortex measures 1.8 cm. There is no demonstrated renal mass or cyst. There is no right hydronephrosis. US/ABD Limited w/ Elastography IMPRESSION: 1. Liver stiffness measures 10.6 kPa compatible with F2-F3 (Mild to moderate liver fibrosis) Metavir score. Electronically Signed: Curly Marcelo MD at 12:29 EDT ,
== END | disposition home or self-care (01) ==
LOC: US 09:53
PROVIDERS: PCP Internal Medicine; Referring Provider Physician Assistant Medical; Visit Provider Physician Assistant Medical
DX: K76.0 Fatty (change of) liver, not elsewhere classified (principal)
CPT/HCPCS: 76705; 76981

== ENCOUNTER 2024-05-22 22:19 | Emergency (ER) | payer MEDICAID, SELFPAY ==
[2024-05-22 22:19] VITALS: BP 153/108; PULSE 53; RESP 16; TEMP 36.6; O2SAT 99; BMI 31.4
--- NOTE | 2024-05-22 22:38 | EDS_ITS ---
HPI History of Present Illness Chief Complaint: Upper Extremity Injury Informant: patient and family Narrative Narrative: Patient is a 29-year-old female who is right-hand dominant with past medical history of asthma. She states that roughly 1 year ago she was seen secondary to a lump in her left wrist. She states that she was informed that if it came back she would need surgery. She states that over the past week she has had increased swelling and pain and has noticed that the lump in her left wrist has returned. She denies any direct trauma fevers or chills but secondary to the returning mass and pain comes in for evaluation [facility] Medical History Impacted cerumen, right ear Asthma Home Medications ?Medication ?Instructions ?Recorded ?Last Taken ?Type albuterol sulfate 90 mcg/actuation 1 - 2 puff inhalation Q4H PRN PRN 05/04/22 Unknown Rx aerosol inhaler (Ventolin HFA) Wheezing 1 month #1 vial buspirone 10 mg tablet mg 10/10/22 Unknown History cyclobenzaprine 10 mg tablet 10 mg PO TID PRN Muscle Spasm #20 10/10/22 Unknown Rx TABLETS hydrocodone-acetaminophen 5-325mg 1 tab PO Q4H PRN PRN Pain 2 days 10/10/22 Unknown Rx 5mg-325mg #10 TABLETS hydroxyzine HCl 50 mg tablet mg 10/10/22 Unknown History levonorgestrel-ethinyl estradiol tab 10/10/22 Unknown History 0.1 mg-20 mcg tablet (Aviane) naproxen 500 mg tablet (Naprosyn) 500 mg PO BID PRN pain #20 tabs 10/10/22 Unknown Rx ondansetron 4 mg disintegrating 4 mg PO Q8H PRN PRN Nausea #10 tabs 12/14/22 Unknown Rx tablet oxycodone 5 mg tablet 5 mg PO Q6H PRN pain 3 days #12 05/22/24 Unknown Rx tabs Allergy/AdvReac Type Severity Reaction Status Date / Time acetaminophen (From Tylenol) Allergy Intermediate Hives Verified 05/22/24 22:20 Social History Smoking Status: Former smoker ROS ROS ED Constitutional Constitutional ED: Denies chills or fever(s) ENT ENT ED: Denies sore throat Cardiovascular Cardiovascular: Denies chest pain Respiratory/Chest Respiratory/Chest: Denies cough or dyspnea Gastrointestinal Gastrointestinal: Denies abdominal pain, diarrhea, nausea or vomiting Genitourinary Genitourinary ED: Denies dysuria Musculoskeletal Musculoskeletal: Reports other Details: Positive left wrist pain Integumentary Reports other Details: Positive mass left wrist ; Denies rash Neurologic Neurologic: Denies headache(s) or paresthesias Hematologic/Lymphatic Hematologic/Lymphatic: Denies easy bleeding or easy bruising EXAM Physical Exam Const Vital Signs: 05/22/24 22:19 Temperature 98 F Temperature Source Oral Pulse Rate 53 L Respiratory Rate 16 Blood Pressure 153/108 H Blood Pressure Mean 123 Pulse Ox 99 Oxygen Delivery Method Room Air Positive well nourished and well developed General Appearance ED: well developed HEENT HEENT Narrative: Normocephalic atraumatic Eyes PERRL and EOMs intact bilaterally Neck full ROM and supple Resp normal respiratory effort and clear to auscultation bilaterally Cardio regular rate and regular rhythm Extremity Extremity Narrative: Left upper extremity is neurovascularly intact; AIN/PIN are intact and normal. Active range of motion is slightly decreased secondary to pain. There is a 1 x 2 cm flesh toned soft movable well-circumscribed circular mass consistent with ganglion cyst to the dorsal aspect of the left wrist. There is pain with palpation at this site. No overlying erythema or warmth no lymphangitic streaking. No obvious cellulitis or abscess formation. Remainder of the exam is normal Neuro oriented x3 and CN's II-XII intact bilaterally Sensorium / Orientation: alert Psych mental status grossly normal Skin Skin Narrative: Soft tissue lesion to the left wrist consistent with ganglion cyst as documented above MDM MDM MDM Narrative Medical decision making narrative: Patient arrived to ER hypertensive otherwise with stable vitals. She reported return of a mass to her left wrist over the past week without any excessive activity or trauma. Terms of diagnosis is for ganglion cyst versus tendon sheath cyst versus cellulitis versus abscess. Without erythema or warmth or lymphangitic streaking concern for cellulitis or abscess is low. The mass is soft and compressible and slightly movable most consistent with a cyst. Without report or signs of trauma I have low concern for fracture or retained foreign body so there is no need for an x-ray. At this time the patient will be referred to orthopedics to discuss need for surgical removal but as she is neurovascularly intact without signs of compartment syndrome or infection there is no need for further workup and she can be given symptomatic care and is safe for discharge home History & Record Review Discussion w/independent historian: Patient Discharge Plan Triage Chief Complaint: Upper Extremity Injury ED Provider: Yossi Shea Dx/Rx/DC Orders Clinical Impression: Ganglion cyst of dorsum of left wrist, Asthma Instructions: ED Ganglion Cyst Prescriptions: New oxycodone 5 mg tablet 5 mg PO Q6H PRN (Reason: pain) 3 Days Qty: 12 0RF No Action albuterol sulfate [Ventolin HFA] 90 mcg/actuation HFA aerosol inhaler 1 - 2 puff inhalation Q4H PRN PRN (Reason: Wheezing) 30 Days Qty: 1 0RF levonorgestrel-ethinyl estrad [Aviane] 0.1-20 mg-mcg tablet Patient Comments: TAKE 1 TABLET BY MOUTH ONCE DAILY FOR 28 DAYS hydroxyzine HCl 50 mg tablet Patient Comments: TAKE 1 TABLET BY MOUTH THREE TIMES DAILY NEEDED FOR ANXIETY buspirone 10 mg tablet Patient Comments: TAKE 1/2 TO 1 (ONE-HALF TO ONE) TABLET BY MOUTH THREE TIMES DAILY NEEDED cyclobenzaprine [cyclobenzaprine] 10 mg tablet 10 mg PO TID PRN (Reason: Muscle Spasm) Qty: 20 0RF hydrocodone-acetaminophen [hydrocodone-acetaminophen] 5-325 mg tablet 1 tab PO Q4H PRN PRN (Reason: Pain) 2 Days Qty: 10 0RF naproxen [Naprosyn] 500 mg tablet 500 mg PO BID PRN (Reason: pain) Qty: 20 0RF ondansetron [ondansetron] 4 mg tablet,disintegrating 4 mg PO Q8H PRN PRN (Reason: Nausea) Qty: 10 0RF Primary Care Provider: Skyla Griffin NP Referrals: Akash Santos DO [Med Staff - Active Staff] - Skyla Griffin NP, [employer] [Primary Care Provider] - Activity Restrictions/Additional Instructions: Please wear your Tonny wrap for compression and stabilization follow-up with orthopedics to discuss need for surgical removal of your cyst. Return to the ER should you have any further concern Print Language: Bol[place]ian Disposition Disposition: Home, Self Care
[2024-05-22] MEDS: oxyCODONE 5 MG Tablet 10 MG PO (22:40)
[2024-05-22 22:53] VITALS: BP 146/89; PULSE 53; RESP 16; TEMP 36.6; O2SAT 99
== END 2024-05-22 22:54 | disposition home or self-care (01) ==
LOC: ED 22:46
PROVIDERS: Emergency Provider Emergency Medicine; PCP Internal Medicine; Referring Provider Emergency Medicine; Visit Provider Emergency Medicine
DX: M67.432 Ganglion, left wrist (principal); J45.909 Unspecified asthma, uncomplicated; Z87.891 Personal history of nicotine dependence
CPT/HCPCS: 99283